=== PATIENT | female | born 1950 | race Caucasian/White ===

== ENCOUNTER → 2018-07-07 08:41 | Outpatient (CLI) | payer MEDICARE, OTHER, SELFPAY ==
[2018-07-07 09:53] LABS: Add Manual Diff / Slide Review NO; Basophils Percent Auto 0.3 % (0-2); Eosinophils Percent Auto 2.8 % (2-4); Hematocrit 38.7 % (36-46); Hemoglobin 12.6 g/dL (12.0-16.0); Lymphocytes Percent Auto 37.2 % (25-40); Mean Corpuscular HGB Conc 32.6 % (30-36); Mean Corpuscular Hemoglobin 29.3 PG (26-34); Mean Corpuscular Volume 89.8 fL (80-100); Monocytes Percent Auto 8.6 % (3-14); Neutrophils Absolute Auto 3300 /uL (3000-5900); Neutrophils Percent Auto 51.1 % (50-75); Platelet Count 278 X10^3/uL (150-400); Red Blood Cell Count 4.31 X10^6/uL (4.0-5.2); Red Cell Distribution Width 16.8 % (11.6-14.8); White Blood Cell Count 6.4 X10^3/uL (4.5-11.0)
[2018-07-07 10:02] LABS: HEMOLYSIS < 15 (0-50); Iron 55 ug/dL (37-170)
[2018-07-07 10:15] LABS: Alanine Aminotransferase 24 IU/L (9-52); Albumin 3.9 g/dL (3.5-5.0); Albumin Globulin Ratio 1.3 (1.0-2.8); Alkaline Phosphatase 83 U/L (38-126); Aspartate Aminotransferase 28 IU/L (14-36); BUN Creatinine Ratio 21.3 (6-22); Bilirubin Total 0.5 mg/dL (0.2-1.3); Blood Urea Nitrogen 17 mg/dL (7-17); Calcium 8.9 mg/dL (8.4-10.2); Carbon Dioxide 30 mmol/L (22-32); Chloride 108 mmol/L (98-107); Estimated Glomerular Filt Rate > 60.0 mL/min (>60); Globulin 2.9 g/dL (1.7-4.1); Glucose 111 mg/dL (80-110); HEMOLYSIS < 15 (0-50); Potassium 4.5 mmol/L (3.4-5.1); Sodium 147 mmol/L (137-145); Total Protein 6.8 g/dL (6.3-8.2)
[2018-07-07 10:19] LABS: Percent Iron Saturation 12 % (15-50); Total Iron Binding Capacity 465 ug/dL (265-497); Transferrin 377 mg/dL (206-381)
[2018-07-07 10:46] LABS: Ferritin 6.7 ng/mL (11.1-264)
[2018-07-09 15:39] LABS: Cancer Antigen 27.29 14 U/mL (< 38)
== END ==
PROVIDERS: PCP Family Medicine; Visit Provider Internal Medicine Hematology & Oncology
DX: C50.911 Malignant neoplasm of unspecified site of right female breast (principal); D50.9 Iron deficiency anemia, unspecified; I10 Essential (primary) hypertension
CPT/HCPCS: 36415; 80053; 82728; 83540; 83550; 85025; 86300

== ENCOUNTER → 2018-07-14 16:37 | Outpatient (CLI) | payer MEDICARE, OTHER, SELFPAY ==
[2018-07-14 18:36] LABS: Free T4, Direct Thyroxine 1.03 ng/dL (0.78-2.19)
[2018-07-14 18:49] LABS: Thyroid Stimulating Hormone 9.88 uIU/mL (0.47-4.68)
== END ==
PROVIDERS: PCP Family Medicine; Visit Provider Nurse Practitioner Adult Health
DX: E03.9 Hypothyroidism, unspecified (principal)
CPT/HCPCS: 36415; 84439; 84443

== ENCOUNTER → 2018-08-24 13:25 | Outpatient (CLI) | payer MEDICARE, OTHER, SELFPAY ==
[2018-08-24 14:55] LABS: Free T4, Direct Thyroxine 1.08 ng/dL (0.78-2.19)
[2018-08-24 15:09] LABS: Thyroid Stimulating Hormone 9.98 uIU/mL (0.47-4.68)
== END ==
PROVIDERS: Family Provider Family Medicine; PCP Family Medicine; Visit Provider Nurse Practitioner Adult Health
DX: E03.9 Hypothyroidism, unspecified (principal)
CPT/HCPCS: 36415; 84439; 84443

== ENCOUNTER → 2019-01-02 14:22 | Outpatient (CLI) | payer MEDICARE, OTHER, SELFPAY ==
[2019-01-02 14:54] LABS: Add Manual Diff / Slide Review NO; Basophils Absolute Auto 0 /uL (0-100); Basophils Percent Auto 0.2 % (0-2); Eosinophils Absolute Auto 300 /uL (0-450); Eosinophils Percent Auto 4.1 % (2-4); Hematocrit 31.8 % (36-46); Hemoglobin 9.9 g/dL (12.0-16.0); Lymphocytes Absolute Auto 1700 /uL (1100-4500); Lymphocytes Percent Auto 26.4 % (25-40); Mean Corpuscular HGB Conc 31.1 % (30-36); Mean Corpuscular Hemoglobin 26.3 PG (26-34); Mean Corpuscular Volume 84.5 fL (80-100); Monocytes Absolute Auto 400 /uL (0-900); Monocytes Percent Auto 6.9 % (3-14); Neutrophils Absolute Auto 4000 /uL (1500-7000); Neutrophils Percent Auto 62.4 % (50-75); Platelet Count 338 X10^3/uL (150-400); Red Blood Cell Count 3.76 X10^6/uL (4.0-5.2); Red Cell Distribution Width 17.9 % (11.6-14.8); White Blood Cell Count 6.4 X10^3/uL (4.5-11.0)
[2019-01-02 15:21] LABS: HEMOLYSIS < 15 (0-50); Iron 32 ug/dL (37-170)
[2019-01-02 15:32] LABS: Percent Iron Saturation 6 % (15-50); Total Iron Binding Capacity 503 ug/dL (265-497); Transferrin 397 mg/dL (206-381)
[2019-01-02 15:58] LABS: Ferritin 4.9 ng/mL (11.1-264)
[2019-01-04 16:09] LABS: Cancer Antigen 27.29 23 U/mL (< 38)
== END ==
PROVIDERS: Internal Medicine Hematology & Oncology; Family Provider Family Medicine; PCP Family Medicine; Visit Provider Nurse Practitioner Adult Health
DX: C50.911 Malignant neoplasm of unspecified site of right female breast (principal); D50.9 Iron deficiency anemia, unspecified; E03.9 Hypothyroidism, unspecified
CPT/HCPCS: 36415; 82728; 83540; 83550; 85025; 86300

== ENCOUNTER → 2020-05-20 13:11 | Outpatient (CLI) | payer MEDICARE, OTHER, SELFPAY ==
--- NOTE | 2020-05-20 | DI.RAD.S_ITS ---
PROCEDURE: XR CHEST 2V INDICATIONS: DYSPNEA TECHNIQUE: 2 views of the chest were acquired. COMPARISON: None. FINDINGS: Surgical changes and devices: Right breast surgical clips. Lungs and pleura: Lungs are clear. No pleural effusions or pneumothorax. Mediastinum: Mediastinal contours are normal. Heart size is normal. Bones and chest wall: No suspicious bony abnormalities. Soft tissues appear unremarkable. IMPRESSION: No acute cardiopulmonary process demonstrated radiographically. Dictated by: William Seaman M.D. on 05/20/2020 at 13:51 Approved by: William Seaman M.D. on 05/20/2020 at 13:52
== END ==
PROVIDERS: Family Provider Family Medicine; PCP Family Medicine; Referring Provider Family Medicine; Visit Provider Family Medicine
DX: R06.09 Other forms of dyspnea (principal)
CPT/HCPCS: 71046

== ENCOUNTER → 2020-05-27 06:41 | Outpatient (CLI) | payer MEDICARE, OTHER, SELFPAY ==
--- NOTE | 2020-05-27 | DI.ECHO.S_ITS ---
[facility]---------+ [facility] +---------+ : : [address] : [address] : : : : [id number] : : : : Phone: [phone] Echocardiogram Report + + :Name: KARY BLACKMON Study Date: 05/27/2020 Height: 66 in : :[facility] Weight: 288 lb : : Gender: Female BSA: 2.3 m2 : :: 1950 Age: 69 yrs BP: 162/85 mmHg: :Reason For Study: DYSPNEA : :Ordering Physician: GARY, : :BLAKE Performed By: Chante Hernandez : :Referring: BLAKE VEGA : + + Interpretation Summary Technically difficult study. The patient was in atrial fibrillation with heart rates between 48-65 bpm during the exam. Normal left ventricle size with ejection fraction 55-60%. Both atria are normal in size. Mild mitral annular calcification. Mild to moderate tricuspid regurgitation. Mildly enlarged ascending aorta. Procedure: A two-dimensional transthoracic echocardiogram with color flow and Doppler was performed. The study quality was technically difficult. There is no prior echocardiogram noted for this patient. The patient was in atrial fibrillation with heart rates between 48-65 bpm during the exam. Left Ventricle: The left ventricle is normal in size and wall thickness. The ejection fraction is estimated to be 55-60%. There are no obvious focal wall motion abnormalities noted but poor endocardial definition reduces the sensitivity for the detection of such. Diastolic function could not be accurately assessed due to atrial fibrillation. Right Ventricle: The right ventricle is not well visualized. The right ventricular systolic function is normal. Atria: Both atria are normal in size. There is no Doppler evidence for an interatrial shunt. Mitral Valve: There is mild mitral annular calcification. The mitral valve is normal in structure and function. There is trace mitral regurgitation. Aortic Valve: The aortic valve is not well visualized. There is no aortic valve stenosis. No aortic regurgitation is present. Tricuspid Valve: The tricuspid valve is not well visualized, but is grossly normal. There is mild to moderate tricuspid regurgitation. The right ventricular systolic pressure is estimated to be at least 27 mmHg based on an estimated right atrial pressure of 8 mm Hg. Pulmonic Valve: The pulmonic valve is not well visualized. There is no pulmonic valvular regurgitation. Great Vessels: The aortic root is normal size. The ascending aorta is mildly enlarged. The IVC is dilated (diameter is greater than 2.1 cm) yet it collapses greater than 50% with a sniff. This suggests a right atrial pressure of 8 mm Hg. Pericardium/ Pleura There is no pericardial effusion. There is no pleural effusion. MMode/2D Measurements & Calculations LVIDd: 4.9 cm LVOT diam: 2.3 cm LVIDs: 3.2 cm Ao root diam: 2.7 cm FS: 34.5 % asc Aorta Diam: 3.5 cm IVSd: 1.0 cm Ao Arch Diam (Prox Trans): 2.3 cm LVPWd: 0.77 cm LV [place]. diameter/BSA (cm/m^2): 2.1 LV sys. diameter/BSA (cm/m^2): 1.4 LA A2 area: 23.3 cm2 RA long axis: 5.3 cm LA A4 area: 18.6 cm2 RA area: 17.6 cm2 LA length (vol): 5.4 cm RA vol: 50.2 ml LA vol: 68.6 ml RA : 21.5 ml/m2 LA vol index: 29.4 ml/m2 IVC diam: 2.5 cm TAPSE: 2.1 cm Doppler Measurements & Calculations Ao V2 max: 166.3 cm/sec LVOT Max Jorden: 104.7 cm/sec Ao V2 mean: 107.1 cm/sec LV V1 max P.4 mmHg Ao max P.1 mmHg LV V1 VTI: 23.4 cm Ao mean P.6 mmHg DOMO(I,D): 3.1 cm2 Ao V2 VTI: 32.1 cm DOMO(V,D): 2.7 cm2 sev ratio: 0.73 DOMO indexed to BSA (cm^2/m^2): 1.3 MV E max jorden: 69.5 cm/sec TR max jorden: 218.5 cm/sec MV A max jorden: 112.0 cm/sec TR max P.1 mmHg MV E/A: 0.62 PA V2 max: 80.6 cm/sec Med Peak E' Jorden: 14.7 cm/sec PA V2 mean: 54.3 cm/sec E/E' med: 4.7 PA mean P.4 mmHg Lat Peak E' Jorden: 13.5 cm/sec PA pr(Accel): 41.3 mmHg E/E' lat: 5.2 E/e' average: 4.9 MV dec time: 0.18 sec SVLVOT): 100.6 ml Electronically signed by: Angus Rojo on Reading Physician:05/27/2020 01:00 PM
== END ==
PROVIDERS: Family Provider Family Medicine; PCP Family Medicine; Referring Provider Family Medicine; Visit Provider Family Medicine
DX: I07.1 Rheumatic tricuspid insufficiency (principal); R06.09 Other forms of dyspnea; I77.89 Other specified disorders of arteries and arterioles
CPT/HCPCS: 93306

== ENCOUNTER → 2020-05-27 14:28 | Outpatient (CLI) | payer MEDICARE, OTHER, SELFPAY ==
[2020-05-28 16:26] LABS: COVID19 Sendout Not Detected (Not Detect)
== END ==
PROVIDERS: Family Provider Family Medicine; PCP Family Medicine; Visit Provider Physician Assistant
DX: Z11.59 Encounter for screening for other viral diseases (principal)
CPT/HCPCS: 87635

== ENCOUNTER → 2020-05-30 10:21 | Outpatient (CLI) | payer MEDICARE, OTHER, SELFPAY ==
--- NOTE | 2020-06-03 15:55 | DI.NM.S_ITS ---
DATE OF SERVICE: PROCEDURE: Pharmacological perfusion study. INDICATIONS: History of congestive heart failure with hypertension and hyperlipidemia. RADIOPHARMACEUTICAL: 27.1 millicurie technetium-99m Myoview IV was injected at stress and 25.6 millicurie technetium-99m Myoview IV was injected at rest. CARDIAC STRESS: The patient underwent pharmacological perfusion study under the supervision of an attending staff. The patient received IV Lexiscan as per protocol. She remained hemodynamically stable. The patient developed shortness of breath. Baseline EKG revealed sinus rhythm, with poor R-wave progression, regular sinus rhythm-complex in V1 to V2, and nonspecific ST/T changes. During stress, patient remained to have nonspecific ST/T changes. The patient developed premature ventricular contractions with ventricular trigeminy. No ventricular tachycardia seen. RAW DATA: There is significant breast shadow seen. Patient's weight is 288 pounds. Increased subdiaphragmatic activity, as well. GATED STUDY: Stress LV ejection fraction 70% without any obvious wall motion abnormalities. Resting end-diastolic volume 107 mL. TID ratio 0.95, which is within normal limits. Lung heart ratio 0.42, which is within normal limits. MYOCARDIAL PERFUSION SCAN: Stress supine and resting supine images were compared with each other. There are no prone images. Stress supine and resting supine images revealed moderate-size moderate to severely decreased perfusion of mid to distal anterior wall and distal anterior septum without any reversible ischemia. CONCLUSION: 1. No obvious reversible ischemia. 2. There is a predominantly fixed, moderate to severely decreased perfusion of the mid to distal anterior wall and distal anterior septum. That segment is moving well. There is significant breast shadow seen. Most likely this is a breast tissue attenuation artifact. In absence of prone images, it is difficult to distinguish breast tissue attenuation artifact versus old nontransmural myocardial infarction. Based on raw data, body habitus, most likely we are dealing with breast tissue attenuation artifact, however, cannot rule out mid to distal anterior wall and distal anteroseptal infarction for sure. Correlate clinically. Sheba Yañez - OBINNA/juana/keturah doc#: [id number]/job#: [id number] dd: 06/03/2020 12:41:00 dt: 06/03/2020 15:46:00 DICTATING MD/COPIES TO: Hallie Gann MD COPIES MNE: ADELITA;
== END ==
PROVIDERS: Family Provider Family Medicine; PCP Family Medicine; Referring Provider Family Medicine; Visit Provider Family Medicine
DX: I50.22 Chronic systolic (congestive) heart failure (principal); R06.09 Other forms of dyspnea; I10 Essential (primary) hypertension; E78.5 Hyperlipidemia, unspecified
CPT/HCPCS: 78452; 93017; A9502; J2785

== ENCOUNTER 2020-06-10 15:51 | Emergency (ER) | payer MEDICARE, OTHER, SELFPAY ==
[2020-06-10] VITALS (15 sets, daily range): BP systolic 143–181; BP diastolic 69–90; PULSE 53–81; RESP 18–36; TEMP 36.6; O2SAT 91–99; BMI 46.7
--- NOTE | 2020-06-10 16:45 | DI.RAD.S_ITS ---
PROCEDURE: XR CHEST 1V INDICATIONS: Chest pain TECHNIQUE: One view of the chest was acquired. COMPARISON: [facility], CR, XR CHEST 2V, 05/20/2020, 13:13. FINDINGS: Surgical changes and devices: None. Lungs and pleura: Lungs are clear. No pleural effusions or pneumothorax. Mediastinum: Mediastinal contours appear normal. Heart size is normal. Bones and chest wall: No suspicious bony lesions. Surgical clips in the right breast again noted. IMPRESSION: No acute cardiopulmonary process demonstrated radiographically. Dictated by: William Seaman M.D. on 06/10/2020 at 16:58 Approved by: William Seaman M.D. on 06/10/2020 at 16:59
--- NOTE | 2020-06-10 17:01 | ED.CHESTPAIN ---
HPI - Chest Pain General Chief Complaint: Chest Pain Stated Complaint: A-Fib, ankle/feet swelling Time Seen by Provider: 06/10/20 16:21 Source: family Mode of arrival: Ambulatory Limitations: no limitations History of Present Illness HPI narrative: Patient is a 69-year-old who presents with. She states she was diagnosed with atrial fibrillation a couple of weeks ago. Since then she has had an echocardiogram and a stress test, she was also started on Lasix and aspirin. She is scheduled to see a business excellence leader but not until August 23. Since then she has had progressive shortness of breath. She says she cannot even make her bed without becoming extremely short of breath she also is experiencing orthopnea. She is having significant swelling in her lower extremity she cannot even get her shoes off. She denies any fever or productive cough, she also denies any chest pain or heart palpitations. She is noted to be in a junctional rhythm with heart rate in the 60s. MD complaint: chest pain Duration: progressively worsening Related Data Home Medications Medication Instructions Recorded Confirmed levothyroxine 0.112 mg PO QDAY #0 10/05/16 tamoxifen 20 mg PO QDAY #0 10/05/16 Previous Rx's Medication Instructions Recorded diazepam [Valium] 5 mg PO Q8HP PRN #15 tab 10/05/16 furosemide [Lasix] 40 mg PO BID #7 tab 06/10/20 Allergies Allergy/AdvReac Type Severity Reaction Status Date / Time No Known Allergies Allergy Verified 06/10/20 17:57 Review of Systems Review of Systems ROS Unobtainable: All systems reviewed & are unremarkable except as noted in HPI and below Constitutional Constitutional: Denies chills, Denies fever(s), Denies lethargy and Denies weakness Eyes Eyes: Denies change in vision, Denies eye discharge, Denies irritation and Denies loss of vision ENT Ears, Nose, Mouth, and Throat: Denies change in voice, Denies neck pain and Denies sore throat Cardiovascular Cardiovascular: Denies chest pain, Reports leg edema and Denies dyspnea on exertion Respiratory Respiratory: Denies dyspnea on exertion Gastrointestinal Gastrointestinal: Denies abdominal pain, Denies change in bowel habits, Denies diarrhea, Denies nausea and Denies vomiting Musculoskeletal Musculoskeletal: Denies myalgias and Denies neck pain Integumentary/Breasts Skin/Breast: Denies pruritus, Denies erythema, Denies rash and Denies wounds Neurologic Neurologic: Denies loss of vision and Denies weakness Patient History Medical History (Updated 06/10/20 @ 19:09 by Yarelis Valenzuela DO) Atrial fibrillation (Acute) Social History Smoking Status: Never smoker Smoking Status: Never smoker Exam Initial Vital Signs Initial Vital Signs: Vital Signs Temperature 97.9 F 06/10/20 15:56 Pulse Rate 65 06/10/20 15:56 Respiratory Rate 22 06/10/20 15:56 Blood Pressure 143/90 H 06/10/20 15:56 Pulse Oximetry 97 06/10/20 15:56 GENERAL: Overweight well-appearing female and in no acute distress. HEENT: Head atraumatic,EOMI, pupils reactive, face symmetric, moist mucous membranes CARDIOVASCULAR: Regular rate and rhythm without murmurs, rubs or gallops. RESPIRATORY: Breath sounds equal bilaterally, no wheezes rales or rhonchi. ABDOMEN: Soft, nontender. Normoactive bowel sounds all 4 quadrants. No guarding or rebound.ss EXTREMITIES: Normal range of motion, no clubbing. +3 pitting edema bilaterally Neurovascularly intact NEUROLOGICAL: Alert and oriented x4.Normal gait and speech. Cranial nerves II through XII grossly intact. SKIN: Warm, dry, no laceration, no petechiae, no rashes or lesions. Course Orders Ordered: ED Orders 06/10/20 16:36 EKG-12 Lead Stat 06/10/20 16:45 XR chest 1V Stat 06/10/20 17:02 Complete Blood Count AUTO DIFF Stat Comprehensive Metabolic Panel Stat Lipase Stat NT-proBNP (BNP-Adult 18+) Stat Partial Thromboplastin Time Stat Prothrombin Time INR Stat Troponin & CK Cardiac Panel Stat 06/10/20 17:28 CT angio chest PE protocol Stat 06/10/20 18:10 EKG-12 Lead Stat Discontinued Medications Furosemide (Lasix) 40 mg IV NOW ONE Stop: 06/10/20 17:53 Last Admin: 06/10/20 18:01 Dose: 40 mg Documented by: SIMRAN Vital Signs Vital signs: Vital Signs - 8 hr 06/10/20 15:56 06/10/20 16:22 06/10/20 16:30 Temperature 97.9 F Pulse Rate 65 81 73 Respiratory Rate 22 22 23 Blood Pressure 143/90 H 179/77 H 167/72 H Pulse Oximetry 97 97 97 06/10/20 16:31 06/10/20 17:00 06/10/20 17:30 Temperature Pulse Rate 70 60 57 L Respiratory Rate 29 H 20 22 Blood Pressure 161/69 H 177/80 H Pulse Oximetry 97 97 96 06/10/20 17:36 06/10/20 18:02 06/10/20 18:03 Temperature Pulse Rate 60 64 59 L Respiratory Rate 25 H 34 H 22 Blood Pressure 177/80 H 181/86 H Pulse Oximetry 97 91 99 06/10/20 18:04 06/10/20 18:41 06/10/20 18:53 Temperature Pulse Rate 58 L 53 L 67 Respiratory Rate 18 36 H Blood Pressure 181/86 H Pulse Oximetry 98 98 97 06/10/20 19:00 06/10/20 19:35 06/10/20 19:36 Temperature Pulse Rate 64 65 58 L Respiratory Rate 29 H 24 Blood Pressure 169/74 H 172/80 H Pulse Oximetry 96 98 98 MDM - Chest Pain Lab Data Attestation: I reviewed the patient's lab results. Result diagrams: 06/10/20 17:02 06/10/20 17:02 Labs: Lab Results 06/10/20 06/10/20 06/10/20 Range/Units 17:02 17:02 17:02 WBC 7.2 (4.5-11.0) X10^3/uL RBC 3.67 L (4.0-5.2) X10^6/uL Hgb 11.1 L (12.0-16.0) g/dL Hct 34.0 L (36-46) % MCV 92.5 (80-100) fL MCH 30.3 (26-34) PG MCHC 32.8 (30-36) % RDW 15.1 H (11.6-14.8) % Plt Count 238 (150-400) X10^3/uL Neut % (Auto) 72.2 (50-75) % Lymph % (Auto) 20.0 L (25-40) % [place] % (Auto) 6.7 (3-14) % Eos % (Auto) 0.8 L (2-4) % Baso % (Auto) 0.3 (0-2) % Neut # (Auto) 5200 (9905-2404) /uL Lymph # (Auto) 1400 (6086-2100) /uL [place] # (Auto) 500 (0-900) /uL Eos # (Auto) 100 (0-450) /uL Baso # (Auto) 0 (0-100) /uL PT 11.3 (10.1-12.7) SECONDS INR 1.0 (0.9-1.3) APTT 28 (26.4-36.2) SECONDS Sodium 139 (137-145) mmol/L Potassium 4.5 (3.4-5.1) mmol/L Chloride 108 H (98-107) mmol/L Carbon Dioxide 27 (22-32) mmol/L BUN 23 H (7-17) mg/dL Creatinine 1.05 H (0.52-1.04) mg/dL Estimated GFR 52.3 L (>60) mL/min BUN/Creatinine Ratio 21.9 (6-22) Glucose 155 H (80-110) mg/dL Calcium 8.7 (8.4-10.2) mg/dL Total Bilirubin 0.4 (0.2-1.3) mg/dL AST 26 (14-36) IU/L ALT 18 (<35) IU/L Alkaline Phosphatase 48 (38-126) U/L Total Creatine Kinase 45 (30-135) U/L CK-MB (CK-2) TNP CK-MB (CK-2) Rel Index TNP Troponin I < 0.012 (0.01-0.034) ng/mL NT-Pro-B Natriuret Pep (<125) pg/mL Total Protein 6.4 (6.3-8.2) g/dL Albumin 3.7 (3.5-5.0) g/dL Globulin 2.7 (1.7-4.1) g/dL Albumin/Globulin Ratio 1.4 (1.0-2.8) Lipase 74 (23-300) U/L / Range/Units 17:02 WBC (4.5-11.0) X10^3/uL RBC (4.0-5.2) X10^6/uL Hgb (12.0-16.0) g/dL Hct (36-46) % MCV (80-100) fL MCH (26-34) PG MCHC (30-36) % RDW (11.6-14.8) % Plt Count (150-400) X10^3/uL Neut % (Auto) (50-75) % Lymph % (Auto) (25-40) % [place] % (Auto) (3-14) % Eos % (Auto) (2-4) % Baso % (Auto) (0-2) % Neut # (Auto) (6533-8047) /uL Lymph # (Auto) (0884-2890) /uL [place] # (Auto) (0-900) /uL Eos # (Auto) (0-450) /uL Baso # (Auto) (0-100) /uL PT (10.1-12.7) SECONDS INR (0.9-1.3) APTT (26.4-36.2) SECONDS Sodium (137-145) mmol/L Potassium (3.4-5.1) mmol/L Chloride (98-107) mmol/L Carbon Dioxide (22-32) mmol/L BUN (7-17) mg/dL Creatinine (0.52-1.04) mg/dL Estimated GFR (>60) mL/min BUN/Creatinine Ratio (6-22) Glucose (80-110) mg/dL Calcium (8.4-10.2) mg/dL Total Bilirubin (0.2-1.3) mg/dL AST (14-36) IU/L ALT (<35) IU/L Alkaline Phosphatase (38-126) U/L Total Creatine Kinase (30-135) U/L CK-MB (CK-2) CK-MB (CK-2) Rel Index Troponin I (0.01-0.034) ng/mL NT-Pro-B Natriuret Pep 692 H (<125) pg/mL Total Protein (6.3-8.2) g/dL Albumin (3.5-5.0) g/dL Globulin (1.7-4.1) g/dL Albumin/Globulin Ratio (1.0-2.8) Lipase (23-300) U/L Imaging Data Chest x-ray: Radiologist's Impression: PROCEDURE: XR CHEST 1V INDICATIONS: Chest pain TECHNIQUE: One view of the chest was acquired. COMPARISON: [facility], , XR CHEST 2V, 05/20/2020, 13:13. FINDINGS: Surgical changes and devices: None. Lungs and pleura: Lungs are clear. No pleural effusions or pneumothorax. Mediastinum: Mediastinal contours appear normal. Heart size is normal. Bones and chest wall: No suspicious bony lesions. Surgical clips in the right breast again noted. IMPRESSION: No acute cardiopulmonary process demonstrated radiographically. Dictated by: William Seaman M.D. on 06/10/2020 at 16:58 Approved by: William Seaman M.D. on 06/10/2020 at 16:59 CT scan - chest: Radiologist's Impression: PROCEDURE: CT ANGIO CHEST PE PROTOCOL INDICATIONS: Short of breath TECHNIQUE: After the administration of intravenous contrast, 2 mm thick sections acquired from the pulmonary apices to the posterior costophrenic angles. 3-dimensional maximum intensity projection (MIP) coronal and sagittal reformats were then acquired through the thorax. For radiation dose reduction, the following was used: automated exposure control, adjustment of mA and/or kV according to patient size. COMPARISON: [facility], CR, XR CHEST 2V, 05/20/2020, 13:13. [facility], CR, XR CHEST 1V, 06/10/2020, 16:48. FINDINGS: Image quality: This study is limited by body habitus. Pulmonary arteries: Pulmonary arteries are normal in size, and demonstrate no intraluminal filling defects to suggest central pulmonary embolism. Lungs and pleura: There is a small right-sided pleural effusion and a trace left-sided pleural effusion. Minimal enhancing atelectasis can be seen dependently at the lung bases. Mediastinum: Enlarged mediastinal lymph nodes are seen, including a subcarinal lymph node that measures 3 x 1.5 cm. There is a superior mediastinal lymph node seen on series 4, image 4 that measures 2.6 x 1.9 cm. Enlarged right perihilar lymph nodes are seen, including a 1.7 x 1.6 cm lymph node. The largest left perihilar lymph node measures 2.3 x 1.2 cm. Heart size is normal, without pericardial effusion. Thoracic aorta is normal in caliber and enhancement. Esophagus is normal in caliber. There is a moderate to large hiatal hernia. Bones and chest wall: Right breast clips are seen. Numerous sclerotic foci are seen within the bones, although most prominent within the lower thoracic spine. There is a T12 compression deformity seen, without art acute features, with approximately 60% loss of height anteriorly. Partial fusion can be seen at T11-T12. Thyroid gland is off of the field of view of this study. No axillary or supraclavicular adenopathy. Abdomen: Visualized upper abdominal solid organs appear normal in the early arterial phase of enhancement. IMPRESSION: Negative for pulmonary embolism. Bilateral pleural effusions are seen, right larger than left, with minimal overlying atelectasis. Abnormally enlarged mediastinal lymph nodes are seen. The given the patient's prior breast surgery, metastatic disease is suspected. If clinically appropriate, please consider a dedicated PET-CT for further evaluation. Bony metastatic disease. If it would be helpful for clinical management decision making, please consider a dedicated whole-body nuclear medicine bone scan for further evaluation. Chronic appearing T12 anterior wedge deformity. Incidental note is made of: Right breast clips Moderate to large hiatal hernia Dictated by: Félix Reinoso M.D. on 06/10/2020 at 16:53 Approved by: Félix Reinoso M.D. on 06/10/2020 at 16:58 ECG Data Attestation: I personally reviewed and interpreted this ECG as follows: Prior ECG tracings: available for review Interpretation: Junctional rhythm with PVCs noted rate 80 EKG 2. Atrial fibrillation rate [address] changes MDM Narrative Medical decision making narrative: Patient actually has junctional rhythm she had a stress test and echocardiogram here last week EF of 55-60% perfusion scan on 06/03/2020 did not reveal any ischemia. Patient at this time is not having any chest pain or ischemic symptoms that is having shortness of breath and has signs of congestive heart failure is will give her extra dose of Lasix and increase her furosemide. Patient has urinated here in the ED she has ambulated without any difficulty. At this time with recent echocardiogram and stress test there is no need for any admission she is also not hypoxic and no evidence of PE. Discharge Plan Departure Patient Disposition: Home Clinical Impression: CHF (congestive heart failure) Qualifiers: Heart failure type: unspecified Heart failure chronicity: acute Qualified Code(s): I50.9 - Heart failure, unspecified Instructions: DI for Heart Failure Activity Restrictions/Additional Instructions: *You have been diagnosed with congestive heart failure *What to do: We will increase her furosemide to help get water off her lungs in her legs to help you brief. *Continue to take medications as directed Lasix 40 mg twice a day for 3 days *Follow up with your primary care provider in 2-3 days *Return to ER if you should have increasing shortness of breath chest pain and passing out or any new, worsening or concerning symptoms Prescriptions: New furosemide [Lasix] 40 mg tablet 40 mg PO BID Qty: 7 RF: 0 No Action tamoxifen 20 MG tablet 20 mg PO QDAY Qty: 0 RF: 0 levothyroxine 112 MCG tablet 0.112 mg PO QDAY Qty: 0 RF: 0 diazepam [Valium] 5 MG tablet 5 mg PO Q8HP PRNQty: 15 RF: 1 Referrals: Nimco Boston MD [Primary Care Provider] -
[2020-06-10 17:09] LABS: Add Manual Diff / Slide Review NO; Basophils Absolute Auto 0 /uL (0-100); Basophils Percent Auto 0.3 % (0-2); Eosinophils Absolute Auto 100 /uL (0-450); Eosinophils Percent Auto 0.8 % (2-4); Hemoglobin 11.1 g/dL (12.0-16.0); Lymphocytes Absolute Auto 1400 /uL (1100-4500); Mean Corpuscular HGB Conc 32.8 % (30-36); Mean Corpuscular Hemoglobin 30.3 PG (26-34); Mean Corpuscular Volume 92.5 fL (80-100); Monocytes Absolute Auto 500 /uL (0-900); Monocytes Percent Auto 6.7 % (3-14); Neutrophils Absolute Auto 5200 /uL (1500-7000); Neutrophils Percent Auto 72.2 % (50-75); Platelet Count 238 X10^3/uL (150-400); Red Blood Cell Count 3.67 X10^6/uL (4.0-5.2); Red Cell Distribution Width 15.1 % (11.6-14.8); White Blood Cell Count 7.2 X10^3/uL (4.5-11.0)
[2020-06-10 17:25] LABS: Prothrombin Time 11.3 SECONDS (10.1-12.7)
[2020-06-10 17:28] LABS: PTT Partial Thromboplastin Tim 28 SECONDS (26.4-36.2)
--- NOTE | 2020-06-10 17:28 | DI.CT.S_ITS ---
PROCEDURE: CT ANGIO CHEST PE PROTOCOL INDICATIONS: Short of breath TECHNIQUE: After the administration of intravenous contrast, 2 mm thick sections acquired from the pulmonary apices to the posterior costophrenic angles. 3-dimensional maximum intensity projection (MIP) coronal and sagittal reformats were then acquired through the thorax. For radiation dose reduction, the following was used: automated exposure control, adjustment of mA and/or kV according to patient size. COMPARISON: [facility], CR, XR CHEST 2V, 05/20/2020, 13:13. [facility], CR, XR CHEST 1V, 06/10/2020, 16:48. FINDINGS: Image quality: This study is limited by body habitus. Pulmonary arteries: Pulmonary arteries are normal in size, and demonstrate no intraluminal filling defects to suggest central pulmonary embolism. Lungs and pleura: There is a small right-sided pleural effusion and a trace left-sided pleural effusion. Minimal enhancing atelectasis can be seen dependently at the lung bases. Mediastinum: Enlarged mediastinal lymph nodes are seen, including a subcarinal lymph node that measures 3 x 1.5 cm. There is a superior mediastinal lymph node seen on series 4, image 4 that measures 2.6 x 1.9 cm. Enlarged right perihilar lymph nodes are seen, including a 1.7 x 1.6 cm lymph node. The largest left perihilar lymph node measures 2.3 x 1.2 cm. Heart size is normal, without pericardial effusion. Thoracic aorta is normal in caliber and enhancement. Esophagus is normal in caliber. There is a moderate to large hiatal hernia. Bones and chest wall: Right breast clips are seen. Numerous sclerotic foci are seen within the bones, although most prominent within the lower thoracic spine. There is a T12 compression deformity seen, without art acute features, with approximately 60% loss of height anteriorly. Partial fusion can be seen at T11-T12. Thyroid gland is off of the field of view of this study. No axillary or supraclavicular adenopathy. Abdomen: Visualized upper abdominal solid organs appear normal in the early arterial phase of enhancement. IMPRESSION: Negative for pulmonary embolism. Bilateral pleural effusions are seen, right larger than left, with minimal overlying atelectasis. Abnormally enlarged mediastinal lymph nodes are seen. The given the patient's prior breast surgery, metastatic disease is suspected. If clinically appropriate, please consider a dedicated PET-CT for further evaluation. Bony metastatic disease. If it would be helpful for clinical management decision making, please consider a dedicated whole-body nuclear medicine bone scan for further evaluation. Chronic appearing T12 anterior wedge deformity. Incidental note is made of: Right breast clips Moderate to large hiatal hernia Dictated by: Félix Reinoso M.D. on 06/10/2020 at 16:53 Approved by: Félix Reinoso M.D. on 06/10/2020 at 16:58
[2020-06-10 17:30] LABS: Alanine Aminotransferase 18 IU/L (<35); Albumin 3.7 g/dL (3.5-5.0); Albumin Globulin Ratio 1.4 (1.0-2.8); Alkaline Phosphatase 48 U/L (38-126); Aspartate Aminotransferase 26 IU/L (14-36); BUN Creatinine Ratio 21.9 (6-22); Bilirubin Total 0.4 mg/dL (0.2-1.3); Blood Urea Nitrogen 23 mg/dL (7-17); Calcium 8.7 mg/dL (8.4-10.2); Carbon Dioxide 27 mmol/L (22-32); Chloride 108 mmol/L (98-107); Creatine Kinase 45 U/L (30-135); Estimated Glomerular Filt Rate 52.3 mL/min (>60); Globulin 2.7 g/dL (1.7-4.1); Glucose 155 mg/dL (80-110); HEMOLYSIS < 15 (0-50); Lipase 74 U/L (23-300); Potassium 4.5 mmol/L (3.4-5.1); Sodium 139 mmol/L (137-145); Total Protein 6.4 g/dL (6.3-8.2)
[2020-06-10 17:42] LABS: Troponin I < 0.012 ng/mL (0.01-0.034)
[2020-06-10 17:46] LABS: NT-proBNP (BNP-Adult 18+) 692 pg/mL (<125)
[2020-06-10] MEDS: FUROSEMIDE 40 MG/4 ML VIAL IV (18:01)
--- NOTE | 2020-06-10 19:39 | PC.NURSE ---
Addendum entered by Maty Sneed R.N. 06/10/20 20:09: ETA: on room air Original Note: Pt ambulated around the department in the hallway, SpO2 remained 95-98% on exertion. Pt tolerated well, states she wants to go home. Will notify Dr Valenzuela.
== END 2020-06-10 20:30 | disposition home or self-care (01) ==
PROVIDERS: Emergency Provider Emergency Medicine; Family Provider Family Medicine; PCP Family Medicine; Referring Provider Family Medicine
DX: I50.9 Heart failure, unspecified (principal); R06.02 Shortness of breath; I48.91 Unspecified atrial fibrillation
CPT/HCPCS: 36415; 71045; 71275; 80053; 82550; 83690; 83880; 84484; 85025; 85610; 85730; 93005; 93010; 96374; 99284; J1940; Q9967

== ENCOUNTER → 2020-06-17 11:20 | Outpatient (CLI) | payer MEDICARE, OTHER, SELFPAY ==
[2020-06-17 12:35] LABS: BUN Creatinine Ratio 20.5 (6-22); Blood Urea Nitrogen 25 mg/dL (7-17); Calcium 8.7 mg/dL (8.4-10.2); Carbon Dioxide 29 mmol/L (22-32); Chloride 108 mmol/L (98-107); Glucose 129 mg/dL (80-110); HEMOLYSIS < 15 (0-50); Potassium 4.3 mmol/L (3.4-5.1); Sodium 140 mmol/L (137-145)
== END ==
PROVIDERS: Family Provider Family Medicine; PCP Family Medicine; Referring Provider Family Medicine; Visit Provider Family Medicine
DX: I50.22 Chronic systolic (congestive) heart failure (principal)
CPT/HCPCS: 36415; 80048

== ENCOUNTER → 2020-07-04 15:19 | Outpatient (CLI) | payer MEDICARE, OTHER, SELFPAY ==
[2020-07-04 16:42] LABS: BUN Creatinine Ratio 16.9 (6-22); Blood Urea Nitrogen 21 mg/dL (7-17); Calcium 8.7 mg/dL (8.4-10.2); Carbon Dioxide 29 mmol/L (22-32); Chloride 108 mmol/L (98-107); Estimated Glomerular Filt Rate 43.1 mL/min (>60); Glucose 108 mg/dL (80-110); HEMOLYSIS < 15 (0-50); Potassium 4.4 mmol/L (3.4-5.1); Sodium 140 mmol/L (137-145)
[2020-07-04 19:53] LABS: Creatinine Urine Random 160.5 mg/dL
[2020-07-04 20:00] LABS: Microalbumi Creatinin Ratio Ur 4.3 ug/mg CR (<30); Microalbumin Urine Random 0.7 mg/dL (0-1.6)
== END ==
PROVIDERS: Family Provider Family Medicine; PCP Family Medicine; Referring Provider Internal Medicine Cardiovascular Disease; Visit Provider Internal Medicine Cardiovascular Disease
DX: I50.32 Chronic diastolic (congestive) heart failure (principal); I10 Essential (primary) hypertension
CPT/HCPCS: 36415; 80048; 82043; 82570

== ENCOUNTER → 2020-07-10 07:15 | Outpatient (CLI) | payer MEDICARE, OTHER, SELFPAY ==
[2020-07-10 09:01] LABS: BUN Creatinine Ratio 19.3 (6-22); Blood Urea Nitrogen 23 mg/dL (7-17); Calcium 8.9 mg/dL (8.4-10.2); Carbon Dioxide 31 mmol/L (22-32); Chloride 97 mmol/L (98-107); Estimated Glomerular Filt Rate 45.2 mL/min (>60); Glucose 109 mg/dL (80-110); HEMOLYSIS < 15 (0-50); Potassium 3.9 mmol/L (3.4-5.1); Sodium 136 mmol/L (137-145)
== END ==
PROVIDERS: Family Provider Family Medicine; PCP Family Medicine; Referring Provider Internal Medicine Cardiovascular Disease; Visit Provider Internal Medicine Cardiovascular Disease
DX: I10 Essential (primary) hypertension (principal)
CPT/HCPCS: 36415; 80048

== ENCOUNTER → 2020-07-26 07:52 | Outpatient (CLI) | payer MEDICARE, OTHER, SELFPAY ==
[2020-07-26 09:59] LABS: BUN Creatinine Ratio 19.7 (6-22); Blood Urea Nitrogen 26 mg/dL (7-17); Calcium 8.7 mg/dL (8.4-10.2); Carbon Dioxide 31 mmol/L (22-32); Chloride 104 mmol/L (98-107); Estimated Glomerular Filt Rate 40.1 mL/min (>60); Glucose 144 mg/dL (80-110); HEMOLYSIS < 15 (0-50); Potassium 3.2 mmol/L (3.4-5.1); Sodium 137 mmol/L (137-145)
== END ==
PROVIDERS: Family Provider Family Medicine; PCP Family Medicine; Referring Provider Nurse Practitioner; Visit Provider Nurse Practitioner
DX: I50.32 Chronic diastolic (congestive) heart failure (principal); I10 Essential (primary) hypertension
CPT/HCPCS: 36415; 80048

== ENCOUNTER → 2020-08-16 06:56 | Outpatient (CLI) | payer MEDICARE, OTHER, SELFPAY ==
[2020-08-16 08:45] LABS: Blood Urea Nitrogen 28 mg/dL (7-17); Carbon Dioxide 32 mmol/L (22-32); Chloride 102 mmol/L (98-107); Estimated Glomerular Filt Rate 43.8 mL/min (>60); Glucose 121 mg/dL (80-110); HEMOLYSIS < 15 (0-50); Potassium 3.7 mmol/L (3.4-5.1); Sodium 140 mmol/L (137-145)
== END ==
PROVIDERS: Family Provider Family Medicine; PCP Family Medicine; Referring Provider Internal Medicine Cardiovascular Disease; Visit Provider Internal Medicine Cardiovascular Disease
DX: I10 Essential (primary) hypertension (principal)
CPT/HCPCS: 36415; 80048

== ENCOUNTER → 2020-12-04 11:11 | Outpatient (CLI) | payer MEDICARE, OTHER, SELFPAY ==
[2020-12-04 12:09] LABS: BUN Creatinine Ratio 16.4 (6-22); Blood Urea Nitrogen 19 mg/dL (7-17); Calcium 8.7 mg/dL (8.4-10.2); Carbon Dioxide 35 mmol/L (22-32); Chloride 102 mmol/L (98-107); Estimated Glomerular Filt Rate 46.5 mL/min (>60); Glucose 123 mg/dL (80-110); HEMOLYSIS < 15 (0-50); Potassium 3.3 mmol/L (3.4-5.1); Sodium 134 mmol/L (137-145)
== END ==
PROVIDERS: Family Provider Family Medicine; PCP Family Medicine; Referring Provider Internal Medicine Cardiovascular Disease; Visit Provider Internal Medicine Cardiovascular Disease
DX: I10 Essential (primary) hypertension (principal)
CPT/HCPCS: 36415; 80048

== ENCOUNTER → 2021-03-04 10:11 | Outpatient (CLI) | payer MEDICARE, OTHER, SELFPAY ==
[2021-03-04 11:51] LABS: BUN Creatinine Ratio 20.6 (6-22); Blood Urea Nitrogen 22 mg/dL (7-17); Calcium 8.8 mg/dL (8.4-10.2); Carbon Dioxide 28 mmol/L (22-32); Chloride 104 mmol/L (98-107); Cholesterol 148 mg/dL (140-199); Glucose 105 mg/dL (80-110); HDL Cholesterol 40 mg/dL (40-60); HEMOLYSIS < 15 (0-50); LDL Cholesterol Calculated 80 mg/dL (<100); Potassium 3.9 mmol/L (3.4-5.1); Sodium 137 mmol/L (137-145); Triglycerides 139 mg/dL (35-150)
== END ==
PROVIDERS: Family Provider Family Medicine; PCP Family Medicine; Referring Provider Internal Medicine Cardiovascular Disease; Visit Provider Internal Medicine Cardiovascular Disease
DX: I10 Essential (primary) hypertension (principal); I50.32 Chronic diastolic (congestive) heart failure
CPT/HCPCS: 36415; 80048; 80061

== ENCOUNTER → 2021-09-01 12:58 | Outpatient (CLI) | payer MEDICARE, OTHER, SELFPAY ==
[2021-09-01 14:33] LABS: Add Manual Diff / Slide Review NO; Basophils Absolute Auto 100 /uL (0-100); Basophils Percent Auto 0.7 % (0-2); Eosinophils Absolute Auto 100 /uL (0-450); Eosinophils Percent Auto 0.8 % (2-4); Hematocrit 34.7 % (36-46); Hemoglobin 10.8 g/dL (12.0-16.0); Lymphocytes Absolute Auto 3300 /uL (1100-4500); Lymphocytes Percent Auto 31.8 % (25-40); Mean Corpuscular HGB Conc 31.2 % (30-36); Mean Corpuscular Hemoglobin 28.2 PG (26-34); Mean Corpuscular Volume 90.3 fL (80-100); Monocytes Absolute Auto 600 /uL (0-900); Monocytes Percent Auto 5.7 % (3-14); Neutrophils Absolute Auto 6400 /uL (1500-7000); Platelet Count 265 X10^3/uL (150-400); Red Blood Cell Count 3.84 X10^6/uL (4.0-5.2); Red Cell Distribution Width 27.1 % (11.6-14.8); White Blood Cell Count 10.5 X10^3/uL (4.5-11.0)
[2021-09-01 14:51] LABS: Anisocytosis 2+; Poikilocytosis 1+
[2021-09-01 15:14] LABS: BUN Creatinine Ratio 17.5 (6-22); Blood Urea Nitrogen 17 mg/dL (7-17); Calcium 8.8 mg/dL (8.4-10.2); Carbon Dioxide 30 mmol/L (22-32); Chloride 105 mmol/L (98-107); Estimated Glomerular Filt Rate 56.9 mL/min (>60); Glucose 115 mg/dL (80-110); HEMOLYSIS < 15 (0-50); Potassium 4.6 mmol/L (3.4-5.1); Sodium 140 mmol/L (137-145)
== END ==
PROVIDERS: Family Provider Family Medicine; PCP Family Medicine; Referring Provider Internal Medicine Cardiovascular Disease; Visit Provider Internal Medicine Cardiovascular Disease
DX: I10 Essential (primary) hypertension (principal)
CPT/HCPCS: 36415; 80048; 85025

== ENCOUNTER → 2021-12-22 07:07 | Outpatient (CLI) | payer MEDICARE, OTHER, SELFPAY ==
[2021-12-22 08:27] LABS: Add Manual Diff / Slide Review NO; Basophils Absolute Auto 0 /uL (0-100); Basophils Percent Auto 0.2 % (0-2); Eosinophils Absolute Auto 100 /uL (0-450); Hematocrit 35.3 % (36-46); Hemoglobin 11.5 g/dL (12.0-16.0); Lymphocytes Absolute Auto 2600 /uL (1100-4500); Lymphocytes Percent Auto 29.7 % (25-40); Mean Corpuscular HGB Conc 32.6 % (30-36); Mean Corpuscular Hemoglobin 30.3 PG (26-34); Mean Corpuscular Volume 92.9 fL (80-100); Monocytes Absolute Auto 700 /uL (0-900); Monocytes Percent Auto 7.9 % (3-14); Neutrophils Absolute Auto 5300 /uL (1500-7000); Neutrophils Percent Auto 61.2 % (50-75); Platelet Count 297 X10^3/uL (150-400); White Blood Cell Count 8.6 X10^3/uL (4.5-11.0)
[2021-12-22 08:36] LABS: BUN Creatinine Ratio 21.1 (6-22); Blood Urea Nitrogen 23 mg/dL (7-17); Calcium 8.7 mg/dL (8.4-10.2); Carbon Dioxide 34 mmol/L (22-32); Chloride 102 mmol/L (98-107); Estimated Glomerular Filt Rate 49.8 mL/min (>60); Glucose 107 mg/dL (80-110); HEMOLYSIS < 15 (0-50); Potassium 4.1 mmol/L (3.4-5.1); Sodium 137 mmol/L (137-145)
== END ==
PROVIDERS: Family Provider Family Medicine; PCP Family Medicine; Referring Provider Internal Medicine Cardiovascular Disease; Visit Provider Internal Medicine Cardiovascular Disease
DX: I10 Essential (primary) hypertension (principal)
CPT/HCPCS: 36415; 80048; 85025

== ENCOUNTER → 2021-12-24 15:53 | Outpatient (CLI) | payer MEDICARE, OTHER, SELFPAY ==
--- NOTE | 2021-12-24 | DI.ECHO.S_ITS ---
[facility] +---------+ [facility] +---------+ : : [address] : [place] : : : : [id number] : : : : Phone: [phone]+ Echocardiogram Report + + :Name: KARY BLACKMON Study Date: 12/24/2021 Height: 66 in : :[facility] ReadingLocation: Weight: 280 lb : : Gender: Female BSA: 2.3 m2 : :: 1950 Age: 71 yrs BP: 134/78 mmHg: :Reason For Study: ATRIAL FIBRILLATION : :Ordering Physician: ROSE, : :NADINE Performed By: Chante Hernandez : :Referring: NADINE MARVIN : + + Interpretation Summary 1) Normal left ventricular thickness, size, wall motion, and systolic function (EF 55-60%). 2) Normal right ventricular size and function. 3) No significant valvular abnormalities. 4) Right ventricular systolic pressure is estimated to be 34 mmHg plus the clinically estimated CVP which cannot be estimated on this exam. 5) Compared to the Echo done 05/27/2020, tricuspid regurgitation has decreased from mild-moderate to mild on this study. Procedure: A two-dimensional transthoracic echocardiogram with color flow and Doppler was performed. The study quality was technically difficult. Comparison is made with the echocardiogram of 05/27/2020. The patient was in sinus rhythm with heart rates between 59-93 bpm during the exam. Left Ventricle: The left ventricle is normal in size and wall thickness. The ejection fraction is estimated to be 55-60%. Left ventricular systolic function appears normal without focal wall motion abnormalities. Right Ventricle: The right ventricle is normal in size and function. Atria: The left atrium is moderately dilated. Right atrial size is normal. There is no Doppler evidence for an interatrial shunt. Mitral Valve: The mitral valve is normal in structure and function. There is mild mitral annular calcification. There is trace mitral regurgitation. Aortic Valve: The aortic valve is trileaflet. The aortic valve opens well. There is no aortic valve stenosis. No aortic regurgitation is present. Tricuspid Valve: The tricuspid valve is normal in structure and function. There is mild tricuspid regurgitation. Right ventricular systolic pressure is estimated to be 34 mmHg plus the clinically estimated CVP which cannot be estimated on this exam. Pulmonic Valve: The pulmonic valve leaflets are thin and pliable; valve motion is normal. There is a trace or physiologic amount of pulmonic regurgitation. Great Vessels: The aortic root is normal size. The dimensions of the ascending aorta are normal. The inferior vena cava was not well visualized. Pericardium/ Pleura There is no pericardial effusion. There is no pleural effusion. MMode/2D Measurements & Calculations LVIDd: 5.3 cm LVOT diam: 2.0 cm LVIDs: 3.6 cm Ao root diam: 2.8 cm FS: 31.5 % asc Aorta Diam: 3.4 cm IVSd: 1.0 cm LVPWd: 0.86 cm LV [place]. diameter/BSA (cm/m^2): 2.3 LV sys. diameter/BSA (cm/m^2): 1.6 LA A2 area: 23.2 cm2 RA long axis: 5.3 cm LA A4 area: 23.5 cm2 RA area: 16.8 cm2 LA length (vol): 5.8 cm RA vol: 44.9 ml LA vol: 80.3 ml RA : 19.4 ml/m2 LA vol index: 34.8 ml/m2 RVD1 (basal): 4.0 cm TAPSE: 2.1 cm Doppler Measurements & Calculations Ao V2 max: 179.1 cm/sec LVOT Max Jorden: 125.8 cm/sec Ao V2 mean: 121.8 cm/sec LV V1 max P.3 mmHg Ao max P.8 mmHg LV V1 VTI: 28.6 cm Ao mean P.7 mmHg DOMO(I,D): 2.3 cm2 Ao V2 VTI: 38.8 cm DOMO(V,D): 2.2 cm2 sev ratio: 0.74 DOMO indexed to BSA (cm^2/m^2): 1.0 MV E max jorden: 98.7 cm/sec TR max jorden: 292.1 cm/sec MV A max jorden: 85.0 cm/sec TR max P.1 mmHg MV E/A: 1.2 PA V2 max: 113.7 cm/sec Med Peak E' Jorden: 9.4 cm/sec PA V2 mean: 72.9 cm/sec E/E' med: 10.5 PA mean P.4 mmHg Lat Peak E' Jorden: 10.2 cm/sec PA pr(Accel): 25.9 mmHg E/E' lat: 9.7 E/e' average: 10.1 MV dec time: 0.31 sec SVLVOT): 89.7 ml Reading Physician:12:36 PM
== END ==
PROVIDERS: Family Provider Family Medicine; PCP Family Medicine; Referring Provider Internal Medicine Cardiovascular Disease; Visit Provider Internal Medicine Cardiovascular Disease
DX: I07.1 Rheumatic tricuspid insufficiency (principal); I48.0 Paroxysmal atrial fibrillation
CPT/HCPCS: 93306; Q9957

== ENCOUNTER → 2022-04-15 06:53 | Outpatient (CLI) | payer MEDICARE, OTHER, SELFPAY ==
[2022-04-15 07:35] LABS: Add Manual Diff / Slide Review NO; Basophils Absolute Auto 100 /uL (0-100); Basophils Percent Auto 0.5 % (0-2); Eosinophils Absolute Auto 100 /uL (0-450); Hematocrit 32.7 % (36-46); Hemoglobin 10.7 g/dL (12.0-16.0); Lymphocytes Absolute Auto 2500 /uL (1100-4500); Lymphocytes Percent Auto 24.2 % (25-40); Mean Corpuscular HGB Conc 32.7 % (30-36); Mean Corpuscular Hemoglobin 28.7 PG (26-34); Mean Corpuscular Volume 87.8 fL (80-100); Monocytes Absolute Auto 700 /uL (0-900); Monocytes Percent Auto 6.5 % (3-14); Neutrophils Absolute Auto 6900 /uL (1500-7000); Neutrophils Percent Auto 67.8 % (50-75); Platelet Count 302 X10^3/uL (150-400); Red Blood Cell Count 3.73 X10^6/uL (4.0-5.2); Red Cell Distribution Width 15.3 % (11.6-14.8); White Blood Cell Count 10.1 X10^3/uL (4.5-11.0)
[2022-04-15 07:59] LABS: Blood Urea Nitrogen 17 mg/dL (7-17); Calcium 8.1 mg/dL (8.4-10.2); Carbon Dioxide 30 mmol/L (22-32); Chloride 104 mmol/L (98-107); Estimated Glomerular Filt Rate 57 mL/min (>60); Glucose 132 mg/dL (80-110); HEMOLYSIS < 15 (0-50); Potassium 3.5 mmol/L (3.4-5.1); Sodium 139 mmol/L (137-145)
== END ==
PROVIDERS: Family Provider Family Medicine; PCP Family Medicine; Referring Provider Internal Medicine Cardiovascular Disease; Visit Provider Internal Medicine Cardiovascular Disease
DX: I10 Essential (primary) hypertension (principal)
CPT/HCPCS: 36415; 80048; 85025

== ENCOUNTER → 2022-10-07 07:12 | Outpatient (CLI) | payer MEDICARE, OTHER, SELFPAY ==
[2022-10-07 09:21] LABS: Add Manual Diff / Slide Review NO; Basophils Absolute Auto 0 /uL (0-100); Basophils Percent Auto 0.4 % (0-2); Eosinophils Absolute Auto 0 /uL (0-450); Eosinophils Percent Auto 0.5 % (2-4); Hematocrit 32.3 % (36-46); Hemoglobin 10.5 g/dL (12.0-16.0); Lymphocytes Absolute Auto 3100 /uL (1100-4500); Lymphocytes Percent Auto 35.6 % (25-40); Mean Corpuscular HGB Conc 32.6 % (30-36); Mean Corpuscular Hemoglobin 28.4 PG (26-34); Mean Corpuscular Volume 87.1 fL (80-100); Monocytes Absolute Auto 600 /uL (0-900); Monocytes Percent Auto 6.9 % (3-14); Neutrophils Absolute Auto 4900 /uL (1500-7000); Neutrophils Percent Auto 56.6 % (50-75); Platelet Count 392 X10^3/uL (150-400); Red Blood Cell Count 3.71 X10^6/uL (4.0-5.2); Red Cell Distribution Width 15.9 % (11.6-14.8); White Blood Cell Count 8.7 X10^3/uL (4.5-11.0)
[2022-10-07 09:47] LABS: BUN Creatinine Ratio 21.1 (6-22); Blood Urea Nitrogen 26 mg/dL (7-17); Calcium 9.1 mg/dL (8.4-10.2); Carbon Dioxide 31 mmol/L (22-32); Chloride 102 mmol/L (98-107); Estimated Glomerular Filt Rate 47 mL/min (>60); Glucose 113 mg/dL (80-110); HEMOLYSIS < 15 (0-50); Potassium 4.1 mmol/L (3.4-5.1); Sodium 138 mmol/L (137-145)
== END ==
PROVIDERS: Family Provider Family Medicine; PCP Family Medicine; Referring Provider Internal Medicine Cardiovascular Disease; Visit Provider Internal Medicine Cardiovascular Disease
DX: I10 Essential (primary) hypertension (principal); Z79.01 Long term (current) use of anticoagulants
CPT/HCPCS: 36415; 80048; 85025

== ENCOUNTER → 2023-04-07 15:26 | Outpatient (CLI) | payer MEDICARE, OTHER, SELFPAY ==
[2023-04-07 17:34] LABS: Add Manual Diff / Slide Review NO; Basophils Absolute Auto 0 /uL (0-100); Basophils Percent Auto 0.4 % (0-2); Eosinophils Absolute Auto 100 /uL (0-450); Eosinophils Percent Auto 1.7 % (2-4); Hematocrit 35.1 % (36-46); Hemoglobin 11.7 g/dL (12.0-16.0); Lymphocytes Absolute Auto 2000 /uL (1100-4500); Lymphocytes Percent Auto 23.4 % (25-40); Mean Corpuscular HGB Conc 33.4 % (30-36); Mean Corpuscular Volume 98.6 fL (80-100); Monocytes Absolute Auto 600 /uL (0-900); Neutrophils Absolute Auto 5700 /uL (1500-7000); Neutrophils Percent Auto 67.5 % (50-75); Platelet Count 227 X10^3/uL (150-400); Red Blood Cell Count 3.56 X10^6/uL (4.0-5.2); Red Cell Distribution Width 14.3 % (11.6-14.8); White Blood Cell Count 8.4 X10^3/uL (4.5-11.0)
[2023-04-07 17:58] LABS: BUN Creatinine Ratio 14.8 (6-22); Blood Urea Nitrogen 17 mg/dL (7-17); Calcium 8.7 mg/dL (8.4-10.2); Carbon Dioxide 29 mmol/L (22-32); Chloride 103 mmol/L (98-107); Estimated Glomerular Filt Rate 51 mL/min (>60); Glucose 122 mg/dL (80-110); HEMOLYSIS < 15 (0-50); Sodium 137 mmol/L (137-145)
== END ==
PROVIDERS: Family Provider Family Medicine; PCP Family Medicine; Referring Provider Internal Medicine Cardiovascular Disease; Visit Provider Internal Medicine Cardiovascular Disease
DX: I50.32 Chronic diastolic (congestive) heart failure (principal)
CPT/HCPCS: 36415; 80048; 85025